=== PATIENT | female | born 1975 | race Caucasian/White ===

== ENCOUNTER 2020-03-14 04:37 | Emergency (ER) | payer OTHER ==
[~2020-03-14 04:37] MED LIST: ANTIVERT25 MG PO; ASPIR 8181 MG PO; COUMADIN 5MG TAB5 MG PO; ELAVIL 50 MG TA50 MG PO; FLEXERIL 10 MG10 MG PO; FLUOXETINE HCL20 MG PO; FUROSEMIDE20 MG PO; HYDROXYZINE HCL50 MG PO; K-TAB ER20 MEQ PO; LOVENOX SY40 MG/0.4 SQ; NEURONTIN 400400 MG PO; NICODERM CQ1 EAC1 TD; NORCO 5-325 TA1 EACH PO; OXYCODONE HCL5 MG PO; PREDNISONE20 MG PO; PROVENTIL HFA 61 INH INH; ZANTAC150 MG PO
[2020-03-14 05:24] LABS: RED BLOOD COUNT 5.62 M/UL (4.00-5.10)
[2020-03-14 05:50] LABS: BUN/CREATININE RATIO 23 (0-10)
[2020-03-14] MEDS ORDERED: IBUPROFEN600 MG PO (06:17)
== END 2020-03-14 06:43 | disposition home or self-care (01) ==
LOC: ER1 04:37
PROVIDERS: Family Medicine
DX: S83.92XA Sprain of unspecified site of left knee, initial encounter (principal); R51.9 Headache, unspecified; E11.9 Type 2 diabetes mellitus without complications; J45.909 Unspecified asthma, uncomplicated; I10 Essential (primary) hypertension; F17.200 Nicotine dependence, unspecified, uncomplicated; W22.8XXA Striking against or struck by other objects, initial encounter; Y92.009 Unspecified place in unspecified non-institutional (private) residence as the place of occurrence of the external cause; Y07.03 Male partner, perpetrator of maltreatment and neglect
CPT/HCPCS: 71045; 73562; 80053; 82550; 82553; 83874; 84484; 85025; 93005; 99284

== ENCOUNTER 2020-04-20 10:54 | Emergency (ER) | payer OTHER ==
[~2020-04-20 10:54] MED LIST changes: +IBUPROFEN600 MG PO
[2020-04-20 11:46] LABS: RED BLOOD COUNT 5.22 M/UL (4.00-5.10); WHITE BLOOD COUNT 11.6 K/UL (4.5-11.0)
[2020-04-20 12:13] LABS: BUN/CREATININE RATIO 21 (0-10)
== END 2020-04-20 16:18 | disposition home or self-care (01) ==
LOC: ER1 10:54
DX: R06.02 Shortness of breath (principal); R05 Cough; I48.91 Unspecified atrial fibrillation; I10 Essential (primary) hypertension; Z20.822 Contact with and (suspected) exposure to COVID-19; J45.909 Unspecified asthma, uncomplicated; F17.210 Nicotine dependence, cigarettes, uncomplicated; Z86.711 Personal history of pulmonary embolism
CPT/HCPCS: 36415; 71045; 80053; 82550; 82553; 83605; 83874; 84484; 85025; 85610; 85730; 93005; 99285; Q9967

== ENCOUNTER → 2020-05-04 | Outpatient (CLI) | payer OTHER | LOC: HEART 5 08:05 | DX: R07.9 Chest pain, unspecified (principal); R06.02 Shortness of breath; I25.9 Chronic ischemic heart disease, unspecified | CPT/HCPCS: 78452; A9502; J2785 ==

== ENCOUNTER → 2020-09-22 | Outpatient (CLI) | payer OTHER | LOC: HEART 5 11:56 | DX: R06.02 Shortness of breath (principal) | CPT/HCPCS: 94010 ==

== ENCOUNTER → 2020-10-04 | Outpatient (CLI) | payer OTHER ==
[2020-10-04 13:42] LABS: HEMOGLOBIN 15.2 gm/dl (12.3-15.3); RED BLOOD COUNT 5.21 M/UL (4.00-5.10); WHITE BLOOD COUNT 11.3 K/UL (4.5-11.0)
[2020-10-04 17:56] LABS: BUN/CREATININE RATIO 17 (0-10)
[2020-10-05 07:11] LABS: ANTISTREPTOLYSIN O AB 70.5 IU/mL (0.0-200.0); HBSAG SCREEN Negative (Negative); HEP A AB, IGM Negative (Negative); HEP B CORE AB, IGM Negative (Negative); HEP C VIRUS AB <0.1 (0.0-0.9); RHEUMATOID ARTHRITIS FACTOR <10.0 IU/mL (0.0-13.9); VITAMIN D, 25-HYDROXY 23.4 ng/mL (30.0-100.0)
== END ==
LOC: LAB 12:25
PROVIDERS: Nurse Practitioner Family
DX: Z51.81 Encounter for therapeutic drug level monitoring (principal); Z79.899 Other long term (current) drug therapy; I10 Essential (primary) hypertension; E78.5 Hyperlipidemia, unspecified; B17.9 Acute viral hepatitis, unspecified; M15.0 Primary generalized (osteo)arthritis; I48.91 Unspecified atrial fibrillation; E55.9 Vitamin D deficiency, unspecified; R53.83 Other fatigue; R53.81 Other malaise; M25.50 Pain in unspecified joint
CPT/HCPCS: 36415; 80053; 80061; 80074; 82150; 83690; 84443; 84550; 85027; 85610; 85652; 86038; 86060; 86140; 86431

== ENCOUNTER → 2021-05-19 | Outpatient (CLI) | payer MEDICARE, OTHER | LOC: RAD 13:36 | DX: M54.2 Cervicalgia (principal); M54.9 Dorsalgia, unspecified; R05.9 Cough, unspecified; M47.812 Spondylosis without myelopathy or radiculopathy, cervical region; M47.814 Spondylosis without myelopathy or radiculopathy, thoracic region; M47.816 Spondylosis without myelopathy or radiculopathy, lumbar region; M47.817 Spondylosis without myelopathy or radiculopathy, lumbosacral region | CPT/HCPCS: 71046; 72050; 72072; 72110 ==